=== PATIENT | male | born 1955 | race Caucasian/White ===

== ENCOUNTER 2024-12-08 14:27 | Emergency (ER) | payer MEDICARE, OTHER, SELFPAY ==
[2024-12-08 14:28] VITALS: BMI 27.6
[2024-12-08 14:37] VITALS: BP 148/97
--- NOTE | 2024-12-08 14:37 | ED.GENMED ---
ED Provider Triage
<Gino Mack PA-C - Last Filed: 12/08/24 14:39>
-
Patient seen by provider in Triage?: Seen in Triage
Attestation: A medical screening examination has been initiated by a qualified medical provider. Based on the assessment performed at this time, it has been determined that an emergent medical condition may exist and the patient has been informed
that further medical evaluation and possible additional diagnostic testing may be needed.
HPI: 69-year-old male presenting to the ER for evaluation at request of urgent care for fevers, urinary frequency/urgency/dysuria that started rather acutely today. Last week had minor stomach bug but recovered from this. Does have a history of
'prostate issues' but currently not following with anybody for this. Recently moved to the area. Did not take any medications prior to arrival. Urinalysis at urgent care showed both nitrite and leukocyte positive urine. Patient febrile to 102 at
urgent care, 100 here, no medications given.
GENERAL: Alert , in no apparent distress
EYE: No visual abnormalities.
NECK: Trachea midline
ENT: No visible abnormalities.
LUNGS: No acute respiratory distress
NEUROLOGICAL: Alert and oriented
SKIN: Skin intact. No visible changes.
MUSCULOSKELETAL: Moving extremities normally
PSYCH: Normal and appropriate interaction.
This is a medical evaluation conducted in person to initiate diagnostic evaluation and provide initial therapeutics. Please see further documentation by the treating clinician.
History of Present Illness
<Gino Mack PA-C - Last Filed: 12/08/24 14:39>
General
Chief Complaint: Urinary Symptoms
Time Seen by Provider: 12/08/24 19:38
<Tl Delgado DO - Last Filed: 12/08/24 21:53>
History of Present Illness
History of Present Illness:
TIME OF INITIAL ENCOUNTER: 7:40 PM
HPI: 5 days ago, the patient had a febrile type of illness/flulike illness. He was feeling better until last night when he was 'up all night trying to urinate'. He was febrile. He went to urgent care and they wanted him to come in here for
further evaluation. He has no flank pain but does have a lower comfort.
EXAM:
GENERAL: Well appearing in no distress
HEENT: Moist oral mucosa
CARDIOVASCULAR: No murmurs, borderline tachycardic heart rate (100), regular rhythm, No chest wall tenderness
PULMONARY: No respiratory distress, breath sounds are clear and equal
ABDOMEN: Soft with no peritoneal signs, no tenderness, no flank tenderness
NEUROLOGIC: Excellent strength all extremities, no coordination deficits
PSYCHIATRIC: Appropriate mental status, normal insight and judgement
EXTREMITIES: Nontender, no edema, moves all extremities equally
SKIN: No rash, no lesions
NUMBER AND COMPLEXITY OF PROBLEMS ADDRESSED AT THE ENCOUNTER
� Chronic conditions affecting care: High blood pressure, NIDDM
� Acute Exacerbation and/or Progression of Chronic Illness: This is an acute problem
� Differential Diagnosis includes: UTI, pyelonephritis, infected stone, sepsis, bacteremia
AMOUNT AND/OR COMPLEXITY OF DATA TO BE REVIEWED AND ANALYZED
� I performed an independent evaluation of and my interpretation is:
EKG:
CT: I personally reviewed CT imaging. No clear ureteral stone. Some atrophy noted to both kidneys. There is not a significant amount of urine in the urinary bladder.
X-rays:
Laboratory Studies: White count 10.3, hemoglobin normal, 0.8% immature granulocytes, urinalysis shows greater than 100 RBCs and 30-40 WBCs with many bacteria, initial lactic 1.5
Other:
� Review of other/old records: No old records available for review
� Clinical information was obtained by an independent historian: I spoke to at bedside
� Prescriptions/Medications Considered but not given:
� Further testing considered but not performed:
RISK OF COMPLICATIONS AND/OR MORBIDITY OR MORTALITY OF PATIENT MANAGEMENT
� Social determinants of health affecting care: Lives at home, works at [employer] part-time, does not have a primary care provider
� Discussion with other providers:
� Escalation of care including admission/observation vs risk of discharge considered: Heart rate at triage was 117, without any intervention including any antipyretics, heart rate is 100 on my examination.
ANY OTHER UPDATES:
9 PM: I reassessed patient. Heart rate in the 90s. He now feels improved after Tylenol and IV fluids were given.
9:45 PM: I reassessed patient. Patient continues to feel well and appears well. Heart rate continues to improve. He prefers outpatient management which I feel is reasonable. Will add Cipro and he was given Rocephin earlier.
Phy Exam
<Tl Delgado DO - Last Filed: 12/08/24 21:53>
Physical Exam
Physical Exam:
See HPI
Sepsis
<Tl Delgado DO - Last Filed: 12/08/24 21:53>
Sepsis Screening
Sepsis Assessment: Sepsis Ruled Out
Sepsis Screen
Sepsis Screen: Sepsis Ruled Out
Date: 12/08/24
Time: 21:53
Course
<Gino Mack PA-C - Last Filed: 12/08/24 14:39>
Orders/Labs/Results
Orders:
Orders
12/08/24 14:37
Bladder Scan- Treatment ONCE
12/08/24 18:28
Urinalysis Reflex To Culture Urgent
Date Specimen was Collected: 12/08/24
Time Specimen was Collected: 18:26
Urine Microscopic Reflex Cult Urgent
Urine Culture Urgent
NAHID Source: U
Specimen Description:
Date Specimen was Collected: 12/08/24
Time Specimen was Collected: 18:26
12/08/24 19:46
CT Abd/pel Without Iv Or Oral Urgent
Comment:
Reason For Exam: lower pain, dysuria, (+) UTI, fever, eval for ston
0.9% Sodium Chloride 1000 ml [Nss] 1,000 ml IV BOLUS
Acetaminophen [Tylenol] 1,000 mg PO NOW STA
12/08/24 19:57
Lactic Acid Q4H
Comment: CANCEL 2nd LACTIC ACID IF 1st LACTIC ACID IS LESS THAN 2
12/08/24 20:28
Complete Blood Count/With Diff Urgent
Comprehensive Metabolic Panel Urgent
Lactic Acid Q4H
Comment: CANCEL 2nd LACTIC ACID IF 1st LACTIC ACID IS LESS THAN 2
Blood Culture Q30M
NAHID Source: Blood/Venous
Specimen Description:
Blood Culture Q30M
NAHID Source: Blood/Venous
Specimen Description:
12/08/24 20:57
CefTRIAXone [Rocephin] 1,000 mg IV NOW STA
Abnormal Lab Results
12/08/24 12/08/24
18:28 20:28
MCV 79.2 L fL
(80.0-94.0)
Abs Immat Gran (auto) 0.1 H 10^3/uL
(0-0.05)
Absolute Neuts (auto) 7.1 H 10^3/uL
(1.4-6.5)
Absolute Monos (auto) 0.8 H 10^3/uL
(0.1-0.6)
Immature Gran % 0.8 H %
(0-0.5)
Sodium 133 L mmol/L
(135-145)
Glucose 285 H mg/dl
(70-99)
Ur Occult Blood Reflex 4+ A
(Negative)
Urine Nitrite (Reflex) Positive A
(Negative)
Leukocyte Esterase Rfl 2+ A
(Negative)
Urine RBC >100 A /HPF
(0-2)
Urine WBC (Reflex) 30-40 A /HPF
(0-5)
Urine Bacteria (Reflex) Many A
(Negative)
Urine Glucose 1+ A
(Negative)
Urine Albumin (Reflex) 3+ A
(Neg - Trace)
12/08/24 20:28
12/08/24 20:28
Vital Signs
Initial and Last Documented VS:
Initial Vital Signs
Temp Pulse Resp BP Pulse Ox
37.7 C 117 16 148/97 98
12/08/24 14:37 12/08/24 14:37 12/08/24 14:37 12/08/24 14:37 12/08/24 14:37
Last Documented Vital Signs
Temp Pulse Resp BP Pulse Ox
37.7 C 100 16 146/73 98
12/08/24 18:55 12/08/24 20:27 12/08/24 18:55 12/08/24 20:09 12/08/24 20:15
<Tl Delgado, DO - Last Filed: 12/08/24 21:53>
Orders/Labs/Results
Orders:
Orders
12/08/24 14:37
Bladder Scan- Treatment ONCE
12/08/24 18:28
Urinalysis Reflex To Culture Urgent
Date Specimen was Collected: 12/08/24
Time Specimen was Collected: 18:26
Urine Microscopic Reflex Cult Urgent
Urine Culture Urgent
NAHID Source: U
Specimen Description:
Date Specimen was Collected: 12/08/24
Time Specimen was Collected: 18:26
12/08/24 19:46
CT Abd/pel Without Iv Or Oral Urgent
Comment:
Reason For Exam: lower pain, dysuria, (+) UTI, fever, eval for ston
0.9% Sodium Chloride 1000 ml [Nss] 1,000 ml IV BOLUS
Acetaminophen [Tylenol] 1,000 mg PO NOW STA
12/08/24 19:57
Lactic Acid Q4H
Comment: CANCEL 2nd LACTIC ACID IF 1st LACTIC ACID IS LESS THAN 2
12/08/24 20:28
Complete Blood Count/With Diff Urgent
Comprehensive Metabolic Panel Urgent
Lactic Acid Q4H
Comment: CANCEL 2nd LACTIC ACID IF 1st LACTIC ACID IS LESS THAN 2
Blood Culture Q30M
NAHID Source: Blood/Venous
Specimen Description:
Blood Culture Q30M
NAHID Source: Blood/Venous
Specimen Description:
12/08/24 20:57
CefTRIAXone [Rocephin] 1,000 mg IV NOW STA
Abnormal Lab Results
12/08/24 12/08/24
18:28 20:28
MCV 79.2 L fL
(80.0-94.0)
Abs Immat Gran (auto) 0.1 H 10^3/uL
(0-0.05)
Absolute Neuts (auto) 7.1 H 10^3/uL
(1.4-6.5)
Absolute Monos (auto) 0.8 H 10^3/uL
(0.1-0.6)
Immature Gran % 0.8 H %
(0-0.5)
Sodium 133 L mmol/L
(135-145)
Glucose 285 H mg/dl
(70-99)
Ur Occult Blood Reflex 4+ A
(Negative)
Urine Nitrite (Reflex) Positive A
(Negative)
Leukocyte Esterase Rfl 2+ A
(Negative)
Urine RBC >100 A /HPF
(0-2)
Urine WBC (Reflex) 30-40 A /HPF
(0-5)
Urine Bacteria (Reflex) Many A
(Negative)
Urine Glucose 1+ A
(Negative)
Urine Albumin (Reflex) 3+ A
(Neg - Trace)
12/08/24 20:28
12/08/24 20:28
Vital Signs
Pulse: 100
Initial and Last Documented VS:
Initial Vital Signs
Temp Pulse Resp BP Pulse Ox
37.7 C 117 16 148/97 98
12/08/24 14:37 12/08/24 14:37 12/08/24 14:37 12/08/24 14:37 12/08/24 14:37
Last Documented Vital Signs
Temp Pulse Resp BP Pulse Ox
37.7 C 100 16 146/73 98
12/08/24 18:55 12/08/24 20:27 12/08/24 18:55 12/08/24 20:09 12/08/24 20:15
<Tl Delgado DO - Last Filed: 12/08/24 21:53>
*Critical Care Note
Total Time (30-74mins, 75-104mins- exclusive of procedures): Not Applicable
ED Attending Note
<Gino Mack PA-C - Last Filed: 12/08/24 14:39>
-
Portions of this chart may have been created with voice recognition software.� Occasional wrong word or��sound alike� substitutions may have occurred due to the inherent limitations of voice recognition software.
Discharge Plan
Departure
Patient Disposition: Home (Routine Discharge)
Date of Disposition: 12/08/24
Time of Disposition: 21:51
Patient with high blood pressure during this ER visit?: Yes
Discharge Problem:
Acute hemorrhagic cystitis
Instructions: Urinary Tract Infection, Adult (DC), BLOOD PRESSURE
Prescriptions:
New
ciprofloxacin HCl [Cipro] 500 mg tablet
500 mg PO BID Qty: 14 0RF
Activity Restrictions/Additional Instructions:
Given your symptoms, I think would be a good idea for you to follow-up with a urologist such as Dr. Fernandez. We gave you a dose of Rocephin tonight. Return here if worse or other concerns.
Interventions
Interventions:
*Risk Screen - Suicide Last Done: 12/08/24 14:37
*General Assessment Last Done: 12/08/24 21:09
*Neglect/Abuse Screening Last Done: 12/08/24 14:37
*ED COVID-19 Vaccine History Last Done: 12/08/24 21:09
ED-Male Genitourinary Assessment Last Done: 12/08/24 21:14
Discharge Date and Time
Print Language: LITHUANIAN
[2024-12-08 18:52] LABS: Urine Albumin 3+ (Neg - Trace); Urine Bilirubin Negative (Negative); Urine Character Very Cloudy (Clear); Urine Color Brown; Urine Glucose 1+ (Negative); Urine Ketone Negative (Negative); Urine Leukocyte 2+ (Negative); Urine Nitrite Positive (Negative); Urine Occult Blood 4+ (Negative); Urine Specific Gravity 1.015 (<1.030); Urine Urobilinogen Negative (Neg - 1+)
[2024-12-08 18:55] VITALS: BP 132/86
[2024-12-08 19:07] LABS: Urine Bacteria Many (Negative); Urine Red Blood Cell >100 /HPF (0-2); Urine Squamous Cell 0-2 /LPF (Few); Urine White Cell 30-40 /HPF (0-5)
[2024-12-08 20:09] VITALS: BP 146/73
[2024-12-08] MEDS: NSS 1000 IV (20:31)
[2024-12-08] MEDS: TYLENOL 1000 MG PO (20:31)
[2024-12-08 20:49] LABS: % Basophils 0.6 % (0-2); % Eosinophils 1.3 % (0-6); % Immature Granulocytes 0.8 % (0-0.5); % Monocytes 7.8 % (1.7-9.3); % Neutrophils 68.5 % (42.2-75.2); Absolute Basophils 0.1 10^3/uL (0-0.2); Absolute Eosinophils 0.1 10^3/uL (0-0.7); Absolute Immature Granulocytes 0.1 10^3/uL (0-0.05); Absolute Lymphocytes 2.2 10^3/uL (1.2-3.4); Absolute Monocytes 0.8 10^3/uL (0.1-0.6); Absolute Neutrophils 7.1 10^3/uL (1.4-6.5); Hematocrit 39.5 % (39.0-52.0); Hemoglobin 13.7 g/dL (13.0-18.0); Mean Corp Hgb Conc. 34.7 g/dL (33.0-37.0); Mean Corpuscular Hgb 27.5 pg (27.0-31.0); Mean Corpuscular Volume 79.2 fL (80.0-94.0); Mean Platelet Volume 10.1 fL (7.4-10.4); Nucleated Red Blood Cells % 0 % (-); Platelet Count 201 10^3/uL (130-400); Red Blood Cell Count 4.99 10^6/uL (4.70-6.10); Red Cell Dist. Width 12.6 % (11.5-14.5); White Blood Cell Count 10.3 10^3/uL (4.8-10.8)
[2024-12-08 20:59] LABS: Lactic Acid 1.5 mmol/L (0.7-2.0)
[2024-12-08 21:00] VITALS: BP 135/71
[2024-12-08 21:02] LABS: ALT (SGPT) 37 U/L (0-50); AST (SGOT) 21 U/L (17-59); Albumin 4.2 g/dl (3.5-5.0); Alkaline Phosphatase 56 U/L (38-126); Blood Urea Nitrogen 14 mg/dl (9-20); Calcium 9.8 mg/dl (8.4-10.2); Carbon Dioxide 24 mmol/L (22-30); Chloride 99 mmol/L (98-107); Estimated Creatinine Clearance 77 ml/min; Glucose 285 mg/dl (70-99); Potassium 3.8 mmol/L (3.5-5.1); Sodium 133 mmol/L (135-145); Total Bilirubin 1.1 mg/dl (0.2-1.3); eGFR > 60.00
[2024-12-08] MEDS: ROCEPHIN 1000 MG IV (21:07)
== END 2024-12-08 22:14 | disposition home or self-care (01) ==
LOC: EMR 14:27
PROVIDERS: Physician Assistant Medical; EMERGENCY PHYSICIAN Emergency Medicine
DX: N30.01 Acute cystitis with hematuria (principal); R03.0 Elevated blood-pressure reading, without diagnosis of hypertension
CPT/HCPCS: 99284; 96374; 96361 ×2; 74176; 80053; 81003; 81015; 83605; 85025; 87040; 87077; 87086; 87186